=== PATIENT | male | born 1985 | race African-American/Black ===

== ENCOUNTER 2021-01-31 14:37 | Emergency (ER) | payer OTHER, SELFPAY ==
[2021-01-31 14:55] VITALS: BP 151/83; PULSE 67; RESP 16; TEMP 36.8; O2SAT 98
--- NOTE | 2021-01-31 15:13 | ED.GENADULT ---
HPI - General Adult General Chief complaint: Unspecified Stated complaint: Elbow and Knee and lower back pain Time Seen by Provider: 01/31/21 14:56 Source: patient and RN notes reviewed Mode of arrival: ambulatory Limitations: no limitations History of Present Illness HPI narrative: Patient presents today complaining of weakness in his low back, left elbow, and right knee x2 years. The symptoms are most pronounced when he is lifting weights at the gym. States that his benchpress amount has decreased approximately 50 pounds over the last 2 years. Reports that he wears an elbow sleeve and brace most of the time due to feeling that these joints are unstable, even out of the gym. States this weakness has not worsened over the last couple of years. Reports he presented today because he wants to, get this taken care of. Denies numbness or tingling in the extremities, genitals, or back. Denies any pain. Denies any loss of bowel or bladder control. States he was evaluated approximately 2 years ago for similar symptoms at an urgent care. At that time he was told to follow-up and stop going to the gym until further follow-up. He did not stop going to the gym and never followed up. MD complaint: Weakness in the back, elbow, and knee Related Data Home Medications Medication Instructions Recorded Confirmed No Home Medications 01/31/21 01/31/21 Allergies Allergy/AdvReac Type Severity Reaction Status Date / Time No Known Allergies Allergy Verified 01/31/21 14:55 Review of Systems Review of Systems: Narrative: CONSTITUTIONAL: Denies body aches, fever, chills, or sweats. EYES: Denies visual changes, redness, or discharge. ENT: Denies rhinorrhea, congestion, sore throat, or otalgia. CARDIOVASCULAR: Denies chest pain, palpitations, or edema. RESPIRATORY: Denies cough or dyspnea. GASTROINTESTINAL: Denies abdominal pain, nausea, vomiting, or diarrhea. GENITOURINARY: Denies dysuria or hematuria. SKIN: Denies rash, itching, or wounds. MUSCULOSKELETAL: Denies back pain, joint pain, or myalgia. NEUROLOGIC: Denies headache, numbness, tingling. + Weakness to the low back, left elbow, and right knee PSYCH: Denies depression or anxiety. [facility] Social History Social History Gender identity (if verbalized by the patient): Male Comments At time of signature, I have reviewed and agree with nursing past medical, surgical, social and family history unless otherwise noted. Please see nursing chart for further information. There is no relevant family history pertinent to the presenting complaint Exam Narrative: Exam Narrative: GENERAL: Well-appearing, well-nourished, and in no acute distress. Muscular body habitus HEAD: Normocephalic, atraumatic. EYES: EOMI. No redness or drainage. Conjunctivae normal. ENT: Mucous membranes pink and moist. NECK: Normal AROM. CHEST: No respiratory distress. MUSCULOSKELETAL: No bony tenderness of the spine. No tenderness of the bilateral thoracic or lumbar paraspinal muscles. No tenderness to bilateral SI joints. Distal sensation intact. Sensation intact. Capillary refill normal. Posterior tibial pulses normal. Foot push and pulls equal and strong. Hip flexion equal and strong against resistance. EXTREMITIES: Left elbow: Nontender. Normal tricep and bicep strength against resistance. No edema noted. Full AROM. Distal sensation intact. Capillary refill normal. Radial pulse normal. Right knee: Mild tenderness with palpation of the patellar tendon. No tenderness with active range of motion. No pain with flexion and extension of the knee against resistance. No pain with passive internal and external rotation of the knee. No laxity noted. SKIN: Warm, dry, no rash. Capillary refill normal. Normal skin turgor. NEURO: No focal deficits. Alert and oriented x3. Gait steady. PSYCH: Normal affect. No signs of depression or anxiety. Course Course Emergency Course: Mention to patient that he wou
== END 2021-01-31 15:20 | disposition home or self-care (01) ==
PROVIDERS: Emergency Provider Nurse Practitioner
DX: M62.81 Muscle weakness (generalized) (principal)
CPT/HCPCS: 99212; G0463